=== PATIENT | female | born 1950 | race Caucasian/White ===

== ENCOUNTER 2024-02-01 07:56 | Outpatient (RCR) | payer MEDICARE, BC, SELFPAY ==
--- NOTE | 2024-02-01 10:48 | PT.OPEX ---
PT [place] Out[facility] Eval PT [facility] Outpatient Eval Start: 02/01/24 09:00 Freq: Status: Active Protocol: Document 02/01/24 09:04 LINCOLN (Rec: 02/01/24 10:37 LINCOLN [id number]) E-signed By Maya Hall DPT Physical Therapy Outpatient Evaluation Insurance Information Recert Due Date 05/01/24 Insurance Name Medicare B,[employer] Medical Diagnosis L hip OA, L hip pain L GAUTAM 02/09/24 Treating Diagnosis L hip pain, L hip stiffness, limping/antalgic gait Subjective Subjective Patient reports chronic L hip pain leading up to L GAUTAM scheduled for 02/06/24. L hip pain rated 8-9/10. She reports being limited with standing, walking, activities. She has not been using an AD. Pushing through L hip pain with her daily activities. Patient reports progressively getting worse and ready for GAUTAM surgery scheduled for next week. Her spouse had GAUTAM surgery about 7 weeks ago. 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 She lives in a multi level home with her spouse. Walk in shower on the lower level. She is scheduled for OP PT in [place]. Date of Last Physician Visit 12/07/23 Date of Surgery (If applicable) 02/09/24 Current Work Status Retired Precautions Treatment Precautions/Contraindications OA, osteoporosis, HTN, sulfur allergy Assessment Assessment/Impression Patient is a 73 year old female with chronic L hip pain , L hip stiffness, limping/ antalgic gait, limited tolerance for standing/walking /stairs/activity. She is scheduled for L GAUTAM 02/09/24. She is seen in PT today for pre-op session to provide education/information on upcoming GAUTAM surgery, safety information/HO, equipment instruction including use of FWW, and instruction in GAUTAM exercises. Handouts issued for exercises, patient to perform them leading up to surgery. Reviewed PT/OT plan after surgery with plan of d/c home later that day. Patient lives with her spouse, he is able to assist as needed after surgery. Patient has not been using an AD but has FWW and 4ww at home to use after surgery as needed. She lives in a multi level home, currently performing step to stair negotiation using railing. Reviewed that this will be the same after surgery until she get stronger with her OP PT. Patient has a walk in shower in the lower level. Reports having grab bars set up by toilets in 2 bathrooms. 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 She is scheduled for OP PT in [place] for her post op GAUTAM rehab starting 02/16/24. Patient seen in PT today for pre-op session only. Set up with HEP to start leading up to her L GAUTAM surgery on . No further PT scheduled at this clinic. Plan of Care Rehabilitation Potential Good Physical Therapy Goals 1. Patient will be educated in GAUTAM pre/post-op safety, mobility, and exercises with HOs provided within one visit with patient returning to PT in [place] for post op treatment after L GAUTAM surgery on 02/09/24. Coordination/Communication With Referral Source Frequency/Duration Pre-op only. Patient scheduled for post op GAUTAM rehab in [place] Patient Will Be Discharged From Therapy Completion of LTG(s),Skills Plateau,Independent w/HEP, Independently Progressing Evaluation Billing Untimed Code Treatment Minutes 34 Complexity Low Certification Information Initial Certification Date 02/01/24 Ending Certification Date 05/01/24 Provider Signature Required Yes Provider Signature Shows Agreement With POC & Medical Necessity Physician NPI Number Write NPI# Here Physician Comment/Change : Physician Signature & Date Requested Please Sign/Date Here
== END 2024-05-31 23:59 | disposition home or self-care (01) ==
PROVIDERS: PCP Nurse Practitioner Family; Visit Provider Orthopaedic Surgery
DX: M16.12 Unilateral primary osteoarthritis, left hip (principal); Z96.642 Presence of left artificial hip joint; Z51.89 Encounter for other specified aftercare
CPT/HCPCS: 97161

== ENCOUNTER 2024-02-09 05:58 | Day surgery (SDC) | payer MEDICARE, BC, SELFPAY ==
[2024-02-09] VITALS (18 sets, daily range): BP systolic 105–152; BP diastolic 63–91; PULSE 55–72; RESP 14–16; TEMP 36.3–36.6; O2SAT 95–97; BMI 22.0
[2024-02-09] MEDS: LACTATED RINGERS 1000 ML 1,000 ML 100 ML IV ×2 (06:30→08:32)
[2024-02-09] MEDS: SODIUM CHLORIDE 0.9 % (FLUSH) 10 ML SYRINGE IVF (06:43)
[2024-02-09] MEDS: ACETAMINOPHEN 500 MG TABLET 1000 MG PO ×2 (06:44→12:50)
[2024-02-09] MEDS: OXYCODONE (CR) 10 MG TAB.ER.12H PO (06:44)
[2024-02-09] MEDS: CELECOXIB 200 MG CAPSULE PO (06:44)
[2024-02-09] MEDS: MIDAZOLAM HCL 1 MG/ML inj IVP (07:13)
[2024-02-09] MEDS: fentaNYL 100 MCG/2 ML inj IVP (07:13)
--- NOTE | 2024-02-09 07:13 | SUR.PREOP ---
TIME?OUT:?07 PT/RN/MDA?VERIFICATION?OF?SURGICAL?SITE,?PROCEDURE,?AND?CONSENT OBTAINED?PRIOR?TO?INVASIVE?PROCEDURE. all in agreement
--- NOTE | 2024-02-09 07:30 | CRLHL7_ITS ---
For Patients: As a result of the Cures Act, medical imaging exams and procedure reports are released immediately into your electronic medical record. You may view this report before your referring provider. If you have questions, please contact your health care provider. Indication: Hip replacement surgery Technique: AP hip fluoroscopic images. Fluoroscopy time 101.1 seconds. Findings/Impression: Hardware from a left total hip arthroplasty is in satisfactory position. Dictated by Evan Cedeno MD @ 02/09/2024 12:56:01 PM (Electronically Signed)
[2024-02-09] MEDS: CEFAZOLIN 2 GM INJ IVP (07:43)
[2024-02-09] MEDS: TRANEXAMIC ACID 100 MG/ML INJ 1000 MG IV (07:50)
--- NOTE | 2024-02-09 09:13 | CRLHL7_ITS ---
For Patients: As a result of the Cures Act, medical imaging exams and procedure reports are released immediately into your electronic medical record. You may view this report before your referring provider. If you have questions, please contact your health care provider. Indication: Postop Technique: AP hip centered pelvis and lateral view left hip Findings/Impression: Hardware from a left total hip arthroplasty is in satisfactory position. Bone alignment is normal. No sign of acute fracture. Postop changes are within normal limits. Dictated by Evan Cedeno MD @ 02/09/2024 12:55:05 PM (Electronically Signed)
--- NOTE | 2024-02-09 09:14 | P.ORPRC_ITS ---
Procedure Note Date of procedure: 02/09/24 Procedure: PREOPERATIVE DIAGNOSIS: Left hip osteoarthritis POSTOPERATIVE DIAGNOSIS: Left hip osteoarthritis NAME OF OPERATION: Left total hip arthroplasty SURGEON: Angelo Garcia MD METAL EXTRUSION SUPERVISOR: Tanya Marquez PA-C, MARYBETH Choudhary IMPLANTS: 1. [employer] [place] # 50 sector ingrowth cup 2. 32 x 50 +4 neutral polyethylene 3. Actis # 6 high offset collared ingrowth stem 4. 32 + 1 ceramic femoral head ANESTHESIA: Spinal ESTIMATED BLOOD LOSS: 350 cc COMPLICATIONS: None SPECIMENS: None DRAINS: None PREOPERATIVE ANTIBIOTICS: Ancef 1 g INDICATIONS: The patient is a 73-year-old with a longstanding history of severe, unrelenting left hip pain secondary to end-stage left hip osteoarthritis. Despite appropriate nonoperative management, including activity modification, use of an assist device, anti-inflammatories, [id number] pain medication, physical therapy and injections, they continue to have pain and disability. Operative intervention was offered. The risks, benefits and expected outcomes were discussed in detail. These included but were not limited to: Infection, bleeding, injury to blood vessel or nerve, venous thromboembolism. All questions were answered to their satisfaction. Use of an butcher assistant was necessary throughout the case for patient positioning and safety, soft tissue retraction and closure. PROCEDURE: The patient was placed supine on the [place] table. General anesthesia was administered. The butcher assistant made sure the patient was properly positioned. The left hip was prepped and draped in the usual sterile fashion. The image intensifier was brought in for a perfect AP pelvis and a perfect double tear drop AP view of each hip which were used for intraoperative templating with our fluoroscopic guide. An oblique incision was made 3 cm distal and 3 cm lateral to the anterior superior iliac spine. The butcher assistant retracted the soft tissues to protect them. Subcutaneous dissection was taken with electrocautery to the superficial fascia. The fascia was divided in line with the incision. Blunt dissection was carried medially to the tensor fascia ady and sartorius interval. Deep dissection was carried with electrocautery. The circumflex vessels were cauteri zed and divided. The capsule was exposed and then divided in a T-fashion, tagged with #1 Ethibond sutures. Retractors were placed in the joint, held by the butcher assistant. The corkscrew was placed in the femoral head. The neck cut was made in the subcapital region. We made a second neck cut more distal. The napkin ring of bone was removed. The femoral head was removed intact. Acetabular retractors were placed, held by the butcher assistant. The labrum was sharply debrided. The capsule was released. The 43 mm reamer was used to the true medial wall. We then enlarged in 2 mm increments using the image intensifier for our reamer placement. We impacted the cup which had excellent purchase. We placed the polyethylene. Attention was then turned to the proximal femur. The limb was placed in 140 degrees of external rotation, maximum extension and adduction. A significant amount of time was spent releasing the capsule to allow us to deliver the femur into the wound and complete the femoral side safely. Retractors were held by the butcher assistant throughout the femoral preparation. The box coverer hand and canal finder were used. Broaches were used to a stable size. The calcar reamer was used. Trial components were placed. The hip was reduced and was found to be stable with appropriate soft tissue tension. Length and offset had been nicely restored using the image intensifier and our fluoroscopic guide. Trial components were removed. The stem was impacted. We placed the femoral head. Again, the hip was reduced and was found to be stable with appropriate soft tissue tension. Length and offset had been nicely restored. The butcher assistant did a three minute dilute Betadine solution soak. The butcher assistant irrigated the wound with 3 liters of normal saline via pulse lavage. The assist ant repaired the anterior capsule with a #1 Vicryl and our previously placed Ethibond sutures. The butcher assistant closed the fascia over the tensor fascia ady with a #1 PDO Stratafix, subcutaneous tissues with 2-0 Vicryl, skin with a running 3-0 Stratafix and glue. A dry dressing was applied by the butcher assistant. Sponge and needle counts were correct x 2. The patient tolerated the procedure well; there were no apparent complications. They were awakened and extubated in the operating room, sent to the Post-Anesthesia Care Unit in satisfactory condition. PLAN: 1. The patient will be mobilized with physical therapy, weight-bearing as tolerates 2. Xarelto x 5 days then aspirin x 30 days will be used for DVT prophylaxis 3. The patient will be discharged once medically appropriate
--- NOTE | 2024-02-09 09:55 | W.ANESCHARGE ---
Anesthesia Charges Start Date/Time Anesthesia Start Date: 02/09/24 Anesthesia Start Time: 07:27 Stop Date/Time Anesthesia Stop Date: 02/09/24 Anesthesia Stop Time: 09:50 Summary Extremes of Age - Over 70 or under 1: RN X RAY
--- NOTE | 2024-02-09 10:41 | P.NB_ITS ---
Nerve Block Nerve Block Time Seen by Provider: 07:16 Date Seen: 02/09/24 Type of block requested by surgeon for post-operative analgesia: KATLYN/LFCN Side: left Time out performed: Yes Verification of patient name: Yes Verification of date of : Yes Site marking: site marked Name of person performing procedure: Terry Continuous monitoring Was continuous monitoring of O2 sat, B/P, phototypesetting equipment monitor, recorded every 15 minutes?: Yes Procedure Checklist: sterile prep, needles and gloves Ultrasound guided. Images saved: Yes Medications given in 5ml increments after negative aspiration: Ropivicaine %: 0.5 mL: 30 Needle gauge: 20 Decadron (mg): 10 Precedex (mcg): 25 Patient tolerated procedure well: Yes Additional comments: Needle noted below psoas tendon needle noted adjacent to LFCN Block Charges Block Charge (with Pro Fee): Other Periph Nerve Block Use of Ultrasound Machine for Block: Yes- US Guidance/pain block
--- NOTE | 2024-02-09 10:41 | W.ANESCHARGE ---
Anesthesia Charges Start Date/Time Anesthesia Start Date: 02/09/24 Anesthesia Start Time: 07:27 Stop Date/Time Anesthesia Stop Date: 02/09/24 Anesthesia Stop Time: 09:50 Summary Extremes of Age - Over 70 or under 1: MDA
[2024-02-09] MEDS: OXYCODONE 5 MG TABLET PO (12:03)
--- NOTE | 2024-02-09 12:58 | SUR.PHASEII ---
pt doing well. Denies pain. Up with SBA and walker to bathroom. Tolerated activity without difficulty. Tolerated toast, 3 cups of coffee and cup of water. left hip dressing c/d/i.
--- NOTE | 2024-02-09 13:04 | SUR.PHASEII ---
Pt voided without difficulty.
--- NOTE | 2024-02-09 13:31 | SUR.PHASEII ---
OT here to see patient
--- NOTE | 2024-02-09 14:25 | SUR.PHASEII ---
Patient back from Physical Therapy, passed and ready to discharge. Spouse at bedside, no questions at this time. Pt denies pain or nausea. VSS. D/c to home with spouse.
== END 2024-02-09 14:32 | disposition home or self-care (01) ==
PROVIDERS: PCP Nurse Practitioner Family; Visit Provider Orthopaedic Surgery
PROC: (CPT 27130; principal; 2024-02-09 07:30)
DX: M16.12 Unilateral primary osteoarthritis, left hip (principal); G89.18 Other acute postprocedural pain; I10 Essential (primary) hypertension; E78.5 Hyperlipidemia, unspecified; I87.2 Venous insufficiency (chronic) (peripheral); G62.9 Polyneuropathy, unspecified
CPT/HCPCS: 27130; 01214; 36415; 64450; 73501; 76000; 76942; 86850; 86900; 86901; 97110; 97116; 97161; 97165; 99100; A9270; C1776; J0690; J1100; J2250; J2405; J2704; J2795; J3010; J7120